=== PATIENT | male | born 1985 | race Caucasian/White ===

== ENCOUNTER 2021-04-20 15:22 | Emergency (ER) | payer OTHER, SELFPAY ==
--- NOTE | ~2021-04-20 | CT_ITS ---
EXAMINATION: CT abdomen pelvis w con DATE: 04/20/2021 17:34 INDICATION: Right lower quadrant abdominal pain. Flank pain. TECHNIQUE: Computed tomography (CT) of the abdomen and pelvis was performed with 100 mL Omnipaque 350 intravenous contrast. Automated exposure control and iterative reconstruction technique were employe d. The dose-length product was 787.09 mGy-cm. COMPARISON: None. FINDINGS: The visualized portions bases demonstrate minimal atelectasis. No pleural effusion. The hea rt size is normal. No pericardial effusion. The liver is normal. There is a 5 mm low-attenuation lesi on in the spleen, likely benign. There are changes of cholecystectomy. The pancreas, adrenal glands, and kidneys are normal. There are no dilated loops of bowel. The appendix is normal. 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 There is mild thoracolumbar spondylosis. IMPRESSION: 1. No etiology for the patient's symptoms. Reviewed, dictated and finalized at location A.
[2021-04-20 15:28] VITALS: BP 132/92; PULSE 85; RESP 14; TEMP 36.4; O2SAT 98
[2021-04-20 15:55] LABS: Basophils Absolute Auto 0.1 K/mm3 (0.0-0.1); Basophils Percent Auto 0.6 % (0.2-1.2); Eosinophils Absolute Auto 0.2 K/mm3 (0-0.3); Eosinophils Percent Auto 1.6 % (0-4.4); Hematocrit 49.4 % (42.0-52.0); Hemoglobin 17.5 g/dL (14.0-18.0); Immature Granulocyte Absolute 0.04 K/mm3 (0.00-0.031); Immature Granulocyte Percent A 0.3 % (0-0.5); Lymphocytes Absolute Auto 2.31 K/mm3 (0.9-3.2); Lymphocytes Percent Auto 19.5 % (18.3-44.2); Mean Corpuscular HGB Conc 35.4 g/dl (32-36); Mean Corpuscular Hemoglobin 29.9 pg (26-34); Mean Corpuscular Volume 84.3 fl (80-100); Mean Platelet Volume 9.5 fl (7.4-10.4); Monocytes Percent Auto 8.3 % (2.6-8.5); Neutrophils Absolute Auto 8.3 K/mm3 (1.3-6.7); Neutrophils Percent Auto 69.7 % (45.5-73.1); Platelet Count Result 407 k/mm3 (150-375); Red Blood Count 5.86 M/mm3 (4.6-6.20); Red Cell Distribution Width 12.4 % (11.5-14.5); White Blood Count 11.9 K/mm3 (4.5-10.0)
[2021-04-20 16:04] LABS: Alanine Aminotransferase 34 U/L (4-50); Albumin Level 5.4 g/dL (3.5-5.1); Alkaline Phosphatase 61 U/L (38-126); Anion Gap 10 mmol/L (8-16); Aspartate Amino Transferase 35 U/L (17-59); Bilirubin,Total 1.2 mg/dL (0.2-1.3); Blood Urea Nitrogen 6 mg/dL (9-20); Calcium 9.7 mg/dL (8.4-10.2); Carbon Dioxide 30 mmol/L (22-30); Chloride 102 mmol/L (98-107); Estimated CRCL calculation 146 ml/min; Estimated Glomerular Filt Rate > 60; Glucose 110 mg/dL (65-110); Lipase 490 U/L (23-300); Potassium 3.6 mmol/L (3.4-5.0); Sodium 142 mmol/L (137-145)
[2021-04-20 16:08] LABS: Add Urine Microscopic? YES; Appearance Urine Clear (Clear); Bacteria Urine Trace /hpf; Bilirubin Urine Negative (Negative); Blood Urine Negative (Negative); Color Urine Yellow (Yellow); Glucose Urine UA Negative (Negative); Ketones Urine Negative (Negative); Leukocyte Esterase Ur 2+ LEU/UL (Negative); Mucus Urine Rare /lpf; Nitrate Urine Negative (Negative); Protein Urine 1+ mg/dL (Negative); RBC Urine 0-2 /hpf (0-2); Specific Grav Ur 1.016 (1.001-1.035); Squamous Epithelial Cell Urine Rare /hpf (Few)
--- NOTE | 2021-04-20 16:32 | ED.ABDPAIN ---
HPI - Abdominal Pain General Chief Complaint: Abdominal Pain Stated Complaint: ABD PAIN INT X MONTH Time Seen by Provider: 04/20/21 16:32 Source: patient Mode of arrival: ambulatory Limitations: no limitations History of Present Illness HPI narrative: Patient is a 35-year-old previously healthy male who presents for evaluation of right lower quadrant pain. Pain has been present and worsening over the past 2 months. Described as dull, aching in nature, at times it is sharp with radiation to the periumbilical area. He reports right flank pain as well. Today he had an episode of vomiting. He reports daily nausea. He reports a 30 pound weight loss over the past 2 months. He denies any swollen lymph nodes or rashes. No significant abdominal distention, diarrhea or constipation. Patient denies fever or chills. No recent heavy bending or lifting. No other inciting injury. Patient has a history of cholecystectomy but denies any other abdominal surgeries. He reports intermittent night sweats, states he attributed this to heavy blankets that his prefers. He denies any dysuria, hematuria, urgency or frequency. He denies alcohol use or drug use. Related Data Allergies Allergy/AdvReac Type Severity Reaction Status Date / Time No Known Allergies Allergy Mild Verified 04/20/21 16:53 Review of Systems Review of Systems: CONSTITUTIONAL: Denies fever, chills, reports intermittent night sweats EYES: Denies visual changes, redness, or discharge. ENT: Denies rhinorrhea, congestion, sore throat, or otalgia. CARDIOVASCULAR: Denies chest pain, palpitations, or edema. RESPIRATORY: Denies cough or dyspnea. GASTROINTESTINAL: Reports abdominal pain, nausea and vomiting GENITOURINARY: Denies dysuria or hematuria. SKIN: Denies rash or itching. MUSCULOSKELETAL: Denies back pain, joint pain, or myalgia. NEUROLOGIC: Denies headache, numbness, or weakness. [facility] Family History Family History (Updated 12/19/16 @ 14:05 by DOCTOR UNKNOWN) Mother Patient's mother is in good health Father Patient's father is , Onset Age: 20 Social History Social History (Updated 04/20/21 @ 16:40 by Tere Sanabria MD) Smoking status: Never smoker Alcohol intake: never Substance use: never Living arrangements: with family Gender identity (if verbalized by the patient): Male Exam Narrative: GENERAL: Awake, alert, conversant HEAD: Normocephalic, atraumatic. EYES: PERRLA and EOMI. ENT: Nares clear, no rhinorrhea or epistaxis. Mucous membranes moist. NECK: Supple. No lymphadenopathy. CHEST: No respiratory distress, breathing even and non labored HEART: Regular rate, sinus rhythm ABDOMEN:Non distended, nonrigid, right lower quadrant tenderness, right flank tenderness, positive guarding, no rebound, negative Rovsing sign EXTREMITIES: Normal range of motion. No edema. SKIN: Warm, dry, no rash. NEURO:No focal deficits. Alert and oriented x3 Course Vital Signs Vital signs: Vital Signs Temperature 36.4 C 04/20/21 15:28 Pulse Rate 85 04/20/21 15:28 Respiratory Rate 14 04/20/21 15:28 Blood Pressure 132/92 H 04/20/21 15:28 Pulse Oximetry 98 04/20/21 15:28 Temperature 36.9 C 04/20/21 16:46 Pulse Rate 68 04/20/21 16:46 Respiratory Rate 18 04/20/21 16:46 Blood Pressure 131/99 H 04/20/21 16:46 Pulse Oximetry 99 04/20/21 16:46 MDM - Abdominal Pain Differential Diagnosis Differential diagnosis: Likely abdominal pain, acute appendicitis, constipation, diverticulitis, gastroenteritis, pancreatitis and small bowel obstruction Medical Records Medical records narrative: Patient presenting for evaluation of right lower quadrant abdominal pain over the past 2 months. Unintentional weight loss. Pain is cramping in nature. No associated urinary symptoms. On exam, patient's abdomen is soft without significant pain or signs of surgical abdomen on serial exams. Lab and imaging evaluations are reviewed an
[2021-04-20 16:46] VITALS: BP 131/99; PULSE 68; RESP 18; TEMP 36.9; O2SAT 99
[2021-04-20] MEDS: SODIUM CHLORIDE 0.9% IV 1,000 ML 999 ML IV CONT (17:23)
[2021-04-20 18:37] VITALS: BP 124/94; PULSE 64; RESP 16; O2SAT 97
== END 2021-04-20 18:37 | disposition home or self-care (01) ==
PROVIDERS: Emergency Medicine; Emergency Provider Emergency Medicine
DX: R10.31 Right lower quadrant pain (principal)
CPT/HCPCS: 36415; 74177; 80053; 81001; 83690; 85025; 96365; 99284; J0131; J7030; Q9967